=== PATIENT | male | born 1950 | race Caucasian/White ===

== ENCOUNTER 2019-09-17 10:27 | Outpatient (CLI) | payer OTHER | END 2019-09-17 23:59 | disposition home or self-care (01) | LOC: CARD 10:27 | PROVIDERS: ATTEND Family Medicine | DX: M62.562 Muscle wasting and atrophy, not elsewhere classified, left lower leg (principal); M62.81 Muscle weakness (generalized) | CPT/HCPCS: 95886; 95909 ==